=== PATIENT | male | born 1940 | race Caucasian/White ===

== ENCOUNTER 2017-02-15 10:16 | Day surgery (SDC) | payer MEDICARE, BC ==
[~2017-02-15] VITALS: Ht 180.3 cm; Wt 106.6 kg
[~2017-02-15 10:16] MED LIST: CIPR500S3 PO; CIPROFLOXACIN; IPRA4AER IH; PREDNISOLONE OPTH; TOBR5DRO2 OP
[2017-02-15] MEDS ORDERED: ALBU90AE IH (11:43)
[2017-02-15] MEDS ORDERED: LISI1TAB11 PO (11:43)
[2017-02-15] MEDS ORDERED: CITA40TA11 PO (11:43)
[2017-02-15] MEDS ORDERED: GLUC-165 PO (11:43)
[2017-02-15] MEDS ORDERED: CLOP75TA2 PO (11:43)
[2017-02-15] MEDS ORDERED: CHOL200018 PO (11:43)
[2017-02-15] MEDS ORDERED: tumeric curcumin PO (11:43)
[2017-02-15] MEDS ORDERED: ISOS30TA6 PO (11:43)
[2017-02-15] MEDS ORDERED: ASPI-1159 PO (11:43)
[2017-02-15] MEDS ORDERED: PRAV40TA58 PO (11:43)
[2017-02-15] MEDS ORDERED: UMEC62.5 IH (11:43)
[2017-02-15] MEDS ORDERED: BACI1CAP4 PO (11:43)
[2017-02-15] MEDS ORDERED: NITR0.4T3 SL (11:43)
[2017-02-15] MEDS ORDERED: [UNRECOGNIZED DRUG - CODE] PO (11:43)
[2017-02-15] MEDS ORDERED: LIDOCAINE HCL 1% 20ML VIAL (Pyxis) INJ ONE (12:57)
[2017-02-15] MEDS ORDERED: FENTANYL CITRATE/PF 50MCG/ML 2ML VIAL ONE (12:57)
[2017-02-15] MEDS ORDERED: MIDAZOLAM HCL 2 MG/2 ML VIAL ONE ×2 (12:57→13:12)
[2017-02-15] MEDS ORDERED: IOHEXOL-300 100 ML BOTTLE ONE (12:58)
[2017-02-15] MEDS ORDERED: IOVERSOL 240MG/ML 100ML BOTTLE IV ONE (13:23)
[2017-02-15] MEDS ORDERED: IODIXANOL 320MG/ML 100 ML BOTTLE IV ONE (13:26)
== END 2017-02-15 16:45 | disposition home or self-care (01) ==
LOC: CCL 10:16
PROVIDERS: ATTEND Specialist
DX: I25.110 Atherosclerotic heart disease of native coronary artery with unstable angina pectoris (principal); I25.2 Old myocardial infarction; I11.9 Hypertensive heart disease without heart failure; E78.5 Hyperlipidemia, unspecified; Z87.891 Personal history of nicotine dependence
CPT/HCPCS: 82962; 93458; 99152; 99153; C1769; C1887; C1893; J1644; J2250; J3010; J3490; Q9967

== ENCOUNTER → 2020-08-04 | Outpatient (CLI) | payer MEDICARE, BC ==
[~2020-08-04] MED LIST changes: +ALBU90AE IH; +ASPI-1497 PO; +BACI1CAP13 PO; +CHOL200074 PO; -CIPR500S3 PO; -CIPROFLOXACIN; +CITA40TA11 PO; +CLOP-31 PO; +GLUC-165 PO; -IPRA4AER IH; +ISOS30TA6 PO; +LISI1TAB11 PO; +NITR0.4T49 SL; +PRAV40TA58 PO; -PREDNISOLONE OPTH; -TOBR5DRO2 OP; +UMEC62.5 IH; +[UNRECOGNIZED DRUG - CODE] PO; +tumeric curcumin PO
== END | disposition home or self-care (01) ==
LOC: RAD 15:40
PROVIDERS: ATTEND Specialist
DX: J44.9 Chronic obstructive pulmonary disease, unspecified (principal); J98.4 Other disorders of lung
CPT/HCPCS: 71046

== ENCOUNTER → 2020-11-11 | Outpatient (CLI) | payer MEDICARE, BC ==
[~2020-11-11] MED LIST changes: -ISOS30TA6 PO; +ISOS30TA91 PO
== END | disposition home or self-care (01) ==
LOC: US 07:42
PROVIDERS: ATTEND Specialist
DX: R91.1 Solitary pulmonary nodule (principal); J43.2 Centrilobular emphysema; I25.10 Atherosclerotic heart disease of native coronary artery without angina pectoris; I70.90 Unspecified atherosclerosis; E04.2 Nontoxic multinodular goiter; K76.89 Other specified diseases of liver; R16.0 Hepatomegaly, not elsewhere classified; N28.1 Cyst of kidney, acquired; N32.89 Other specified disorders of bladder; J98.11 Atelectasis; Z95.1 Presence of aortocoronary bypass graft; Z90.79 Acquired absence of other genital organ(s)
CPT/HCPCS: 71250; 76700; 76857

== ENCOUNTER → 2020-11-23 | Outpatient (CLI) | payer MEDICARE, BC | END | disposition home or self-care (01) | LOC: US 10:09 | PROVIDERS: ATTEND Specialist | DX: E04.2 Nontoxic multinodular goiter (principal) | CPT/HCPCS: 76536 ==

== ENCOUNTER → 2020-12-09 | Outpatient (CLI) | payer MEDICARE, BC | END | disposition home or self-care (01) | LOC: NM 07:59 | PROVIDERS: ATTEND Specialist | DX: E04.1 Nontoxic single thyroid nodule (principal) | CPT/HCPCS: 78014; A9516 ==

== ENCOUNTER → 2020-12-28 | Day surgery (SDC) | payer MEDICARE, BC ==
[~2020-12-28] MED LIST changes: +LIDOCAINE HCL 1% 20ML VIAL (Pyxis) INJ ONE; +SODIUM BICARBONATE 4% (2.4MEQ) 5ML VIAL IV ONE
== END | disposition home or self-care (01) ==
LOC: RAD 09:56
PROVIDERS: ATTEND Specialist
DX: E04.2 Nontoxic multinodular goiter (principal); Z79.82 Long term (current) use of aspirin; Z79.899 Other long term (current) drug therapy
CPT/HCPCS: 10005; 10006; 88305; J3490

== ENCOUNTER → 2023-11-23 | Day surgery (SDC) | payer MEDICARE, BC ==
[~2023-11-23] VITALS: Ht 180.3 cm; Wt 87.5 kg
[~2023-11-23] MED LIST changes: +APIX5TAB PO; -BACI1CAP13 PO; -CITA40TA11 PO; -CLOP-31 PO; +FLUT1BLS3 IH; +FOLI0.4T6 PO; -GLUC-165 PO; -ISOS30TA91 PO; -LIDOCAINE HCL 1% 20ML VIAL (Pyxis) INJ ONE; +LISI10TA26 PO; -LISI1TAB11 PO; +METF-414 PO; -NITR0.4T49 SL; -PRAV40TA58 PO; -SODIUM BICARBONATE 4% (2.4MEQ) 5ML VIAL IV ONE; +SODIUM CHLORIDE 0.45% 500 ML IV ONE; +SOTA80TA PO; -UMEC62.5 IH; -[UNRECOGNIZED DRUG - CODE] PO; -tumeric curcumin PO
== END | disposition home or self-care (01) ==
LOC: CCL 06:37
PROVIDERS: ATTEND Specialist
DX: I48.92 Unspecified atrial flutter (principal); Z53.8 Procedure and treatment not carried out for other reasons; I25.10 Atherosclerotic heart disease of native coronary artery without angina pectoris; I10 Essential (primary) hypertension; E11.9 Type 2 diabetes mellitus without complications; I25.2 Old myocardial infarction; J44.9 Chronic obstructive pulmonary disease, unspecified; E78.5 Hyperlipidemia, unspecified; Z87.891 Personal history of nicotine dependence; Z79.899 Other long term (current) drug therapy; Z98.890 Other specified postprocedural states
CPT/HCPCS: 93005; Z7610

== ENCOUNTER 2024-10-18 07:24 | Emergency (ER) | payer MEDICARE, BC ==
[~2024-10-18] VITALS: Ht 180.3 cm; Wt 77.1 kg
[~2024-10-18 07:24] MED LIST changes: -APIX5TAB PO; +ATOR40TA70 PO; -CHOL200074 PO; +CHOL400D7 MT; +FERR-63 PO; -FLUT1BLS3 IH; +FLUT1BLS3 INH; -LISI10TA26 PO; +PROT40 MT; -SODIUM CHLORIDE 0.45% 500 ML IV ONE; +SOTA80TA MT; -SOTA80TA PO
[2024-10-18 07:28] VITALS: O2SAT 98
[2024-10-18] MEDS: ACETAMINOPHEN 325MG TABLET PO ONE (08:20)
[2024-10-18] MEDS: LIDOCAINE 5% PATCH TOP SCH (08:21)
[2024-10-18] MEDS ORDERED: LIDO700A15 TP (09:13)
[2024-10-18 09:28] VITALS: BP 122/59; PULSE 88; RESP 18; TEMP 37.4; O2SAT 98
== END 2024-10-18 09:30 | disposition home or self-care (01) ==
LOC: ER 07:24
DX: M54.50 Low back pain, unspecified (principal); I48.91 Unspecified atrial fibrillation; J44.9 Chronic obstructive pulmonary disease, unspecified; I12.9 Hypertensive chronic kidney disease with stage 1 through stage 4 chronic kidney disease, or unspecified chronic kidney disease; N18.9 Chronic kidney disease, unspecified; Z79.899 Other long term (current) drug therapy; Z95.1 Presence of aortocoronary bypass graft; Z79.82 Long term (current) use of aspirin; Z79.84 Long term (current) use of oral hypoglycemic drugs
CPT/HCPCS: 72131; 72170; 99284